=== PATIENT | male | born 1980 | race African-American/Black ===

== ENCOUNTER 2016-10-06 10:08 | Emergency (ER) | payer OTHER ==
--- NOTE | ~2016-10-06 | CR20 ---
[facility] A Service of [facility] & [facility] RADIOLOGY TEXT RESULTS PATIENT: JAIME KIDD LOCATION: [facility] : 84 UNIT #: [id number] AGE: [address]: Dong Waggoner MD SEX: M ORDER DR: [id number] [facility] [address] [place], [place] [address] [id number] P MR#: [id number] Acc #: [id number] NAME: JAIME KIDD : 1980 SEX: M STUDY DATE/TIME: 10/06/2016 8:22 UNIT: [facility] ROOM: STUDY DESCRIPTION: CR Ankle Min 3 Views Lt Ordering Physician: Ed Doctor [id number] [facility] Primary Care Physician: Primary Care Physician No MEDICAL IMAGING REPORT This report is preliminary unless electronic signature is present EXAM Left ankle HISTORY Twisting injury this morning with pain and swelling. TECHNIQUE 3 views of the ankle were obtained. FINDINGS 3 views of the ankle show mild degenerative changes anteriorly at the ankle joint and at the medial malleolus where a small ligamentous ossification is seen. No acute fractures are noted. The ankle mortise is symmetric and the dome of the talus is intact. IMPRESSION Chronic-appearing ligamentous calcification on the medial side. Mild degenerative changes at the ankle joint. No evidence of fracture. Dictated by... Bret Mayes M.D. THIS IS AN ELECTRONICALLY VERIFIED REPORT Bret Mayes M.D. at 10/06/2016 4:57 PM MEGAN/devi TD: 10/06/2016 09:08 JOB #: [id number] MEDICAL IMAGING REPORT Page 1 of 1 COPY
== END 2016-10-06 10:17 | disposition home or self-care (01) ==
LOC: CED 10:08
DX: S93.402A Sprain of unspecified ligament of left ankle, initial encounter (principal); W01.0XXA Fall on same level from slipping, tripping and stumbling without subsequent striking against object, initial encounter
CPT/HCPCS: 29540; 73610; 99283